=== PATIENT | female | born 1950 | race Two or more races ===

== ENCOUNTER 2017-06-23 14:45 | Outpatient (CLI) | payer OTHER | END 2017-06-23 15:07 | disposition home or self-care (01) | LOC: SONOGRAMA 14:45 | DX: E04.1 Nontoxic single thyroid nodule (principal) ==

== ENCOUNTER 2018-08-27 09:24 | Outpatient (CLI) | payer OTHER | END 2018-08-27 09:30 | disposition home or self-care (01) | LOC: SONOGRAMA 09:24 | DX: E04.1 Nontoxic single thyroid nodule (principal) ==

== ENCOUNTER 2019-03-05 10:47 | Outpatient (CLI) | payer OTHER | END 2019-03-05 10:52 | disposition home or self-care (01) | LOC: SONOGRAMA 10:47 | DX: E04.1 Nontoxic single thyroid nodule (principal) ==

== ENCOUNTER 2022-01-27 10:35 | Outpatient (CLI) | payer OTHER | END 2022-01-27 10:44 | disposition home or self-care (01) | LOC: SONOGRAMA 10:35 | PROVIDERS: ATTEND Internal Medicine Endocrinology, Diabetes & Metabolism | DX: E04.1 Nontoxic single thyroid nodule (principal) ==

== ENCOUNTER 2024-09-27 09:40 | Outpatient (CLI) | payer OTHER | END 2024-09-27 09:44 | disposition home or self-care (01) | LOC: SONOGRAMA 09:40 | PROVIDERS: ATTEND Internal Medicine Endocrinology, Diabetes & Metabolism | DX: E04.1 Nontoxic single thyroid nodule (principal) ==